=== PATIENT | female | born 1985 | race American Indian/Alaskan Native ===

== ENCOUNTER 2018-05-20 13:39 | Emergency (ER) | payer BC, MEDICAID ==
[2018-05-20 14:49] LABS: CHLORIDE,CL 103 mEq/L (98-106); SODIUM,NA 139 mEq/L (136-145)
[2018-05-20 14:57] VITALS: BP 123/84
[2018-05-20] MEDS ORDERED: LORazepam 2 MG/ML Syringe IVPUSH ONE (16:23)
--- NOTE | 2018-05-20 16:30 | EDM.PDOC ---
ED HPI GENERAL MEDICAL PROBLEM - General Chief Complaint: General Stated Complaint: PANIC ATTACK Time Seen by Provider: 05/20/18 14:03 Source of Information: Reports: Patient History Limitations: Reports: No Limitations - History of Present Illness INITIAL COMMENTS - FREE TEXT/NARRATIVE: Graciela is a 33 yo female who presents to the ER with concerns of anxiety. 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 States she started to feel a chest heaviness and nauseated feeling. She has a long history of anxiety with panic attacks. She admits to previously being on medications for it but hasn't been on for quite some time. She states she has been doctoring in [place] at [place]. States she was recently treated for pelvic inflammatory disease and was placed on two antibiotics. Otherwise, hasn't been on any medications. She denies any illicit drugs or alcohol use. Denies any energy drinks. States she does drink caffeine via soda on a daily basis. She admits to tobacco use. She states she knew it was her anxiety and she always gets a heaviness in her chest and seems to go into her throat. Duration: Improving Location: Reports: Generalized Associated Symptoms: Reports: Chest Pain, Nausea/Vomiting. Denies: Fever/Chills , Shortness of Breath, Syncope Chest Pain Score (Numeric/FACES): 10 - Related Data Allergies Allergy/AdvReac Type Severity Reaction Status Date / Time codeine Allergy Nausea and Verified 05/20/18 13:44 Vomiting Home Meds: Home Meds . [No Known Home Meds] 05/20/18 [History] Past Medical History HEENT History: Reports: Other (See Below) Other HEENT History: Recent influenza Respiratory History: Reports: Other (See Below) Other Respiratory History: Recent Influenza A Gastrointestinal History: Reports: Chronic Constipation Psychiatric History: Reports: Suicide Attempt Endocrine/Metabolic History: Reports: Obesity/BMI 30+ Dermatologic History: Reports: Other (See Below) Other Dermatologic History: Sores, boils treated with antibiotics. - Infectious Disease History Infectious Disease History: Reports: Influenza - Past Surgical History GI Surgical History: Reports: Cholecystectomy Social & Family History - Family History Family Medical History: Noncontributory - Tobacco Use Smoking Status *Q: Current Every Day Smoker Years of Tobacco use: 18 Packs/Tins Daily: 0 - Caffeine Use Caffeine Use: Reports: Soda Other Caffeine Use: daily - Recreational Drug Use Recreational Drug Use: No - Living Situation & Occupation Occupation: Employed ED ROS GENERAL - Review of Systems Review Of Systems: See Below Constitutional: Denies: Fever, Chills HEENT: Reports: No Symptoms Respiratory: Reports: No Symptoms. Denies: Shortness of Breath, Wheezing Cardiovascular: Reports: Chest Pain, Palpitations. Denies: Edema, Syncope GI/Abdominal: Reports: No Symptoms : Reports: No Symptoms, Hematuria (states currently has her period). Denies: Discharge, Dysuria, Irregular Menses Musculoskeletal: Reports: No Symptoms Skin: Reports: No Symptoms ED EXAM, GENERAL - Physical Exam Exam: See Below Exam Limited By: No Limitations General Appearance: Alert, Anxious Ears: Normal External Exam, Normal Canal, Hearing Grossly Normal, Normal TMs Nose: Normal Inspection, Normal Mucosa, No Blood Throat/Mouth: Normal Inspection, Normal Lips, Normal Teeth, Normal Gums, Normal Oropharynx, Normal Voice, No Airway Compromise Head: Atraumatic, Normocephalic Neck: Normal Inspection, Supple, Non-Tender Respiratory/Chest: No Respiratory Distress, Lungs Clear, Normal Breath Sounds, No Accessory Muscle Use Cardiovascular: Normal Peripheral Pulses, Regular Rate, Rhythm, No Edema, No Murmur GI/Abdominal: Soft, Non-Tender, No Organomegaly, No Abnormal Bruit, No Mass Extremities: Normal Inspection, No Pedal Edema, Normal Capillary Refill Neurological: Alert, Oriented, Normal Cognition, No Motor/Sensory Deficits Psychiatric: Anxious. No: Depressed Mood, Flat Affect, Tearful Skin Exam: Warm, Dry, Intact, Normal Color, No Rash Course - Vital Signs Last Recorded V/S: Last Vital Signs Temp 97.8 F 05/20/18 13:48 Pulse 97 05/20/18 13:48 Resp 20 05/20/18 13:48 BP 123/84 05/20/18 14:56 Pulse Ox 99 05/20/18 13:48 - Orders/Labs/Meds Orders: Active Orders 24 hr Category Date Time Status LORazepam [Ativan] Med 05/20/18 16:23 Once 1 mg IVPUSH ONETIME ONE Labs: Laboratory Tests 05/20/18 05/20/18 05/20/18 Range/Units 14:08 14:08 15:09 WBC 19.0 H (5.0-10.0) 10^3/uL RBC 4.75 (4.00-5.50) 10^6/uL Hgb 14.2 (12.0-16.0) g/dL Hct 42.0 (37.0-47.0) % MCV 88.4 (82.0-94.0) fL MCH 29.9 (27.0-32.0) pg MCHC 33.8 (33.0-38.0) g/dL RDW Coeff of Amanda 13.0 (11.0-15.0) % Plt Count 368 (150-400) 10^3/uL Neut % (Auto) 78.9 (35-85) % Lymph % (Auto) 13.2 (10-55) % Wright % (Auto) 5.4 (0-16) % Eos % (Auto) 2.3 (0-5) % Baso % (Auto) 0.2 (0-3) % Neut # (Auto) 15.01 H (1.80-7.00) 10^3/uL Lymph # (Auto) 2.52 (1.00-4.80) 10^3/uL Wright # (Auto) 1.02 H (0.00-0.80) 10^3/uL Eos # (Auto) 0.44 (0.00-0.45) 10^3/uL Baso # (Auto) 0.03 10^3/uL Sodium 139 (136-145) mEq/L Potassium 3.4 L (3.5-5.0) mEq/L Chloride 103 (98-106) mEq/L Carbon Dioxide 27 (21-32) mmol/L BUN 14 (7-18) mg/dL Creatinine 0.8 (0.6-1.0) mg/dL Est Cr Clr Drug Dosing 97.23 mL/min Estimated GFR (MDRD) > 60 (>=60) mL/min Glucose 109 H (75-99) mg/dL Calcium 8.2 L (8.4-10.1) mg/dL Creatine Kinase 109 (21-215) U/L Troponin I < 0.017 (0.00-0.06) ng/mL TSH, Ultra Sensitive 1.35 (0.36-5.60) uIU/mL Urine Color Yellow (YELLOW) Urine Appearance Slightly cloudy (CLEAR) Urine pH 5.5 (4.5-8.0) Ur Specific [place] >= 1.030 H (1.003-1.020) Urine Protein >=300 H (NEGATIVE) mg/dL Urine Glucose (UA) Negative (NEGATIVE) mg/dL Urine Ketones Negative (NEGATIVE) mg/dL Urine Occult Blood Large H (NEGATIVE) Urine Nitrite Negative (NEGATIVE) Urine Bilirubin Negative (NEGATIVE) Urine Urobilinogen 0.2 (0.2-1.0) EU/dL Ur Leukocyte Esterase Negative (NEGATIVE) Urine RBC 40-50 H (0-5) /HPF Urine WBC 0-5 (0-5) /HPF Ur Squamous Epith Cells Moderate H (NOT SEEN) /HPF Urine Bacteria Occasional H (NOT SEEN) /HPF Departure - Departure Time of Disposition: 16:43 Disposition: Home, Self-Care 01 Clinical Impression: Anxiety, Panic attack - Discharge Information Instructions: Panic Attack, [id number], Generalized Anxiety Disorder, Adult Referrals: Provider,Unknown [Primary Care Provider] - Additional Instructions: 1) Rest today 2) Recommend establishing care with family medicine provider. May consider restarting assisted medicine. 3) Need to have repeat laboratory next week with primary provider to include WBC. 4) Push fluids, refrain from caffeine or any stimulants 5) Hand out given on panic disorder 6) Return to ER if symptoms worsen or any further concerns. - Problem List & Annotations (1) Anxiety SNOMED Code(s): 80720500 Code(s): F41.9 - ANXIETY DISORDER, UNSPECIFIED Status: Acute Current Visit: Yes (2) Panic attack SNOMED Code(s): 961050557 Code(s): F41.0 - PANIC DISORDER [EPISODIC PAROXYSMAL ANXIETY] Status: Acute Current Visit: Yes - My Orders Last 24 Hours: My Active Orders 05/20/18 16:23 LORazepam [Ativan] 1 mg IVPUSH ONETIME ONE - Assessment/Plan Last 24 Hours: My Active Orders 05/20/18 16:23 LORazepam [Ativan] 1 mg IVPUSH ONETIME ONE Plan: Graciela has been doing well in the ER. We have monitored her for a few hours and is doing quite well. She was given 1mg of Ativan. 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 We will discharge her home at this time in satisfactory condition. Graciela verbalized understanding. She is well aware no driving for 24 hours.
[2018-05-20] MEDS ORDERED: LORazepam 2 MG/ML Syringe IM PRN (16:31)
== END 2018-05-20 16:52 | disposition home or self-care (01) ==
LOC: CC.ED 13:39
DX: F41.0 Panic disorder [episodic paroxysmal anxiety] (principal); F17.210 Nicotine dependence, cigarettes, uncomplicated; Z88.5 Allergy status to narcotic agent
CPT/HCPCS: 36415; 80048; 81001; 82550; 84443; 84484; 85025; 93005; 96372; 99283; J2060

== ENCOUNTER 2020-06-04 20:17 | Emergency (ER) | payer MEDICAID ==
--- NOTE | 2020-06-04 21:05 | EDM.PDOC ---
ED HPI GENERAL MEDICAL PROBLEM - General Chief Complaint: Lower Extremity Injury/Pain Stated Complaint: left foot pain Time Seen by Provider: 06/04/20 20:37 Source of Information: Reports: Patient History Limitations: Reports: No Limitations - History of Present Illness INITIAL COMMENTS - FREE TEXT/NARRATIVE: Graciela is a 35 yo female who presents to the ED with complaints of left foot pain. States she was going down some steps this evening and tripped landing awkwardly onto her left foot. States she immediately heard a crack and felt extreme pain. States she isn't able to bear much weight d/t the discomfort. No prior injury to foot. States it is tender to midfoot on the top aspect of it. Left Foot Pain Score (Numeric/FACES): 6 - Related Data Allergies Allergy/AdvReac Type Severity Reaction Status Date / Time codeine Allergy Nausea and Verified 06/04/20 20:20 Vomiting Home Meds: Home Meds Sertraline [Zoloft] 50 mg PO DAILY 06/04/20 [History] valACYclovir HCl [Valtrex] 500 mg PO DAILY 06/04/20 [History] Past Medical History HEENT History: Reports: Other (See Below) Other HEENT History: Recent influenza Respiratory History: Reports: Other (See Below) Other Respiratory History: Recent Influenza A Gastrointestinal History: Reports: Chronic Constipation Genitourinary History: Reports: UTI, Recurrent Psychiatric History: Reports: Suicide Attempt Endocrine/Metabolic History: Reports: Obesity/BMI 30+ Dermatologic History: Reports: Other (See Below) Other Dermatologic History: Sores, boils treated with antibiotics. - Infectious Disease History Infectious Disease History: Reports: Influenza - Past Surgical History GI Surgical History: Reports: Cholecystectomy Social & Family History - Family History Family Medical History: Noncontributory - Tobacco Use Tobacco Use Status *Q: Current Every Day Tobacco User Years of Tobacco use: 20 Packs/Tins Daily: 0.5 - Caffeine Use Caffeine Use: Reports: Soda Other Caffeine Use: daily - Living Situation & Occupation Occupation: Employed Review of Systems - Review of Systems Review Of Systems: Comprehensive ROS is negative, except as noted in HPI. ED EXAM, GENERAL - Physical Exam Exam: See Below Exam Limited By: No Limitations General Appearance: Alert, WD/WN, No Apparent Distress Extremities: Normal Capillary Refill, Limited Range of Motion (left foot d/t pain), Other (Tenderness with palpation to dorsum of left foot along the 3rd metatarsal. ) Neurological: No Motor/Sensory Deficits Psychiatric: Normal Affect, Normal Mood Skin Exam: Warm, Dry, Intact, Normal Color Course - Orders/Labs/Meds Orders: Active Orders 24 hr Category Date Time Status Foot Comp Min 3V Lt [CR] Stat Exams 06/04/20 20:25 Taken - Radiology Interpretation Free Text/Narrative:: X-rays reviewed and concerns of non-displaced fracture at the base of the 3rd metatarsal. Departure - Departure Time of Disposition: 21:00 Disposition: Home, Self-Care 01 Clinical Impression: Fractured metatarsal bone Qualifiers: Encounter type: initial encounter Metatarsal bone: third Fracture type: closed Fracture alignment: nondisplaced Laterality: left Qualified Code(s): S92.335A - Nondisplaced fracture of third metatarsal bone, left foot, initial encounter for closed fracture - Discharge Information Instructions: Lisfranc Injury Referrals: PCP,None [Primary Care Provider] - Additional Instructions: 1) X-rays shows concerns of a Lisfranc fracture of the 3rd metatarsal of the left foot. 2) Cam-walker placed today and crutches given. 3) Recommend non weightbearing at this time 4) Will need to see orthopedics for follow up. 5) We will call for ortho appointment tomorrow morning and call with details 6) May ice foot 20 minutes at a time- 5 times a day 7) Recommend taking 1000mg of Tylenol with 400-600mg of ibuprofen every 6 hours as needed for discomfort. Advise not taking over 4000mg of Tylenol in 24 hrs. 8) Return if any concerns. 9) Recommend following up with primary provider for recheck blood pressure. Sepsis Event Note (ED) - Evaluation Sepsis Screening Result: No Definite Risk - Problem List & Annotations (1) Fractured metatarsal bone SNOMED Code(s): 548911726 Code(s): S92.309A - FRACTURE OF UNSP METATARSAL BONE(S), UNSP FOOT, INIT Status: Acute Current Visit: Yes Qualifiers: Encounter type: initial encounter Metatarsal bone: third Fracture type: closed Fracture alignment: nondisplaced Laterality: left Qualified Code(s): S92.335A - Nondisplaced fracture of third metatarsal bone, left foot, initial encounter for closed fracture - My Orders Last 24 Hours: My Active Orders 06/04/20 20:25 Foot Comp Min 3V Lt [CR] Stat - Assessment/Plan Last 24 Hours: My Active Orders 06/04/20 20:25 Foot Comp Min 3V Lt [CR] Stat Plan: Please see additional instructions.
[2020-06-04 21:11] VITALS: BP 143/92; PULSE 85
== END 2020-06-04 21:20 | disposition home or self-care (01) ==
LOC: CC.ED 20:17
DX: S92.335A Nondisplaced fracture of third metatarsal bone, left foot, initial encounter for closed fracture (principal); E66.9 Obesity, unspecified; F17.210 Nicotine dependence, cigarettes, uncomplicated; Z90.49 Acquired absence of other specified parts of digestive tract; Z88.5 Allergy status to narcotic agent; Z79.899 Other long term (current) drug therapy; W10.9XXA Fall (on) (from) unspecified stairs and steps, initial encounter
CPT/HCPCS: 73630-LT; 99283-25

== ENCOUNTER 2021-03-12 17:50 | Emergency (ER) | payer MEDICAID ==
[2021-03-12] MEDS ORDERED: Take Home: Amoxicillin 500 MG Cap, 2 Cap Pack ONE (18:07)
[2021-03-12 18:21] VITALS: BP 144/86; PULSE 76
[2021-03-12] MEDS ORDERED: Take Home: Amoxicillin 500 MG Cap, 2 Cap Pack PO ONE (18:25)
--- NOTE | 2021-03-12 18:27 | EDM.PDOC ---
ED HPI GENERAL MEDICAL PROBLEM - General Chief Complaint: General Stated Complaint: sore throat Time Seen by Provider: 03/12/21 18:15 Source of Information: Reports: Patient History Limitations: Reports: No Limitations - History of Present Illness INITIAL COMMENTS - FREE TEXT/NARRATIVE: Graciela is a 35 year old female who presents with a 2 day history of a sore throat, difficulty swallowing. Notes now has swelling and pain in her neck along her jaw line and hurts to turn her head. No fevers. Has had sinus congestion for several weeks now but sore throat just started 2 days ago. Has been trying to use cold freezies to ease the discomfort. No cough or chest congestion. States right ear hurts but feels it is from radiation from the throat. No nausea/vomiting or rash. Onset: Gradual Duration: Day(s):, Getting Worse Location: Reports: Head, Neck Quality: Reports: Throbbing Severity: Moderate Improves with: Reports: None Associated Symptoms: Reports: Malaise. Denies: Confusion, Chest Pain, Cough, Fever/Chills, Loss of Appetite, Nausea/Vomiting, Shortness of Breath Throat Pain Score (Numeric/FACES): 5 - Related Data Allergies Allergy/AdvReac Type Severity Reaction Status Date / Time codeine Allergy Nausea and Verified 03/12/21 18:02 Vomiting Home Meds: Home Meds valACYclovir HCl [Valtrex] 500 mg PO DAILY 06/04/20 [History] Acetaminophen 325 mg PO ASDIRECTED PRN 03/12/21 [History] Acetaminophen [Tylenol Extra Strength] 2 tab PO ASDIRECTED PRN 03/12/21 [History] Cyclobenzaprine [Flexeril] 1 tab PO ASDIRECTED 03/12/21 [History] Ibuprofen 200 mg PO DAILY PRN 03/12/21 [History] Topiramate 1 tab PO ASDIRECTED 03/12/21 [History] Venlafaxine [Effexor XR] 1 tab PO BEDTIME 03/12/21 [History] hydrOXYzine HCL [Hydroxyzine HCl] 10 mg PO TID 03/12/21 [History] Past Medical History HEENT History: Reports: Other (See Below) Other HEENT History: Recent influenza Respiratory History: Reports: Other (See Below) Other Respiratory History: Recent Influenza A Gastrointestinal History: Reports: Chronic Constipation Genitourinary History: Reports: UTI, Recurrent COUNTY HISTORIAN History: Reports: Other COUNTY HISTORIAN History: pregnancies x5 Neurological History: Reports: Migraines, Seizure Psychiatric History: Reports: Suicide Attempt Endocrine/Metabolic History: Reports: Obesity/BMI 30+ Dermatologic History: Reports: Other (See Below) Other Dermatologic History: Sores, boils treated with antibiotics. - Infectious Disease History Infectious Disease History: Reports: Chicken Pox, Influenza - Past Surgical History HEENT Surgical History: Reports: Myringotomy w Tube(s) GI Surgical History: Reports: Cholecystectomy Musculoskeletal Surgical History: Reports: Arthroscopic Knee Other Musculoskeletal Surgeries/Procedures:: L) knee scope x2 Social & Family History - Family History Family Medical History: No Pertinent Family History - Tobacco Use Tobacco Use Status *Q: Current Every Day Tobacco User Years of Tobacco use: 20 Packs/Tins Daily: 0.2 - Caffeine Use Caffeine Use: Reports: Soda Other Caffeine Use: daily - Recreational Drug Use Recreational Drug Use: No - Living Situation & Occupation Occupation: Employed ED ROS GENERAL - Review of Systems Review Of Systems: See Below Constitutional: Reports: Chills, Malaise. Denies: Fever, Fatigue, Decreased Appetite HEENT: Reports: Ear Pain, Rhinitis, Throat Pain. Denies: Sinus Problem Respiratory: Denies: Shortness of Breath, Cough Cardiovascular: Denies: Chest Pain, Edema, Lightheadedness Endocrine: Denies: Fatigue GI/Abdominal: Denies: Abdominal Pain, Nausea, Vomiting : Reports: No Symptoms Musculoskeletal: Reports: Neck Pain Skin: Reports: No Symptoms Neurological: Reports: No Symptoms Psychiatric: Reports: No Symptoms ED EXAM, GENERAL - Physical Exam Exam: See Below Exam Limited By: No Limitations General Appearance: Alert, WD/WN, No Apparent Distress Ears: Normal External Exam, Normal TMs Nose: Normal Inspection, Normal Mucosa, No Blood Throat/Mouth: Other (Right tonsillar hypertrophy, posterior pharynx is red. ) Head: Normocephalic Neck: Normal Inspection, Supple, Lymphadenopathy (R) Respiratory/Chest: No Respiratory Distress, Lungs Clear, Normal Breath Sounds Cardiovascular: Regular Rate, Rhythm GI/Abdominal: Normal Bowel Sounds, Soft, Non-Tender Extremities: Normal Inspection, No Pedal Edema Neurological: Alert, Oriented Skin Exam: Warm, Dry Course - Vital Signs Last Recorded V/S: Last Vital Signs Temp 98 F 03/12/21 18:18 Pulse 76 03/12/21 18:18 Resp 18 03/12/21 18:18 BP 144/86 H 03/12/21 18:18 Pulse Ox 97 03/12/21 18:18 - Orders/Labs/Meds Meds: Medications Discontinued Medications Generic Name Dose Route Start Last Admin Trade Name Rafy PRN Reason Stop Dose Admin Amoxicillin 1 packet 03/12/21 18:25 Take Home: Amoxicillin 500 Mg Cap, 2 Cap Pack PO 03/12/21 18:26 ONETIME ONE Departure - Departure Time of Disposition: 18:26 Disposition: Home, Self-Care 01 Condition: Good Clinical Impression: Tonsillitis - Discharge Information *PRESCRIPTION DRUG MONITORING PROGRAM REVIEWED*: No *COPY OF PRESCRIPTION DRUG MONITORING REPORT IN PATIENT TAMIKA: No Instructions: Tonsillitis Referrals: Latasha Long EXHIBIT DISPLAY REPRESENTATIVE [Primary Care Provider] - Forms: ED Department Discharge Additional Instructions: 1. Push fluids 2. Alternate tylenol with ibuprofen for fever or discomfort 3. Amoxicillin 875 mg twice a day for 10 days 4. Follow up with your primary care provider if persisting concerns. Sepsis Event Note (ED) - Evaluation Sepsis Screening Result: No Definite Risk - Focused Exam Vital Signs: Vital Signs Temp Pulse Resp BP Pulse Ox 03/12/21 18:18 98 F 76 18 144/86 H 97
== END 2021-03-12 18:33 | disposition home or self-care (01) ==
LOC: CC.ED 17:50
DX: J03.90 Acute tonsillitis, unspecified (principal); E66.9 Obesity, unspecified; Z88.5 Allergy status to narcotic agent; Z68.42 Body mass index [BMI] 45.0-49.9, adult; Z72.0 Tobacco use
CPT/HCPCS: 99283; A9270